=== PATIENT | female | born 1985 | race Caucasian/White ===

== ENCOUNTER 2018-04-09 13:05 | Emergency (ER) | payer OTHER ==
[~2018-04-09] VITALS: Ht 160 cm; Wt 106.9 kg
[2018-04-09 13:15] VITALS: TEMP 36.8; Ht 160 cm; Wt 106.9 kg
[2018-04-09] MEDS ORDERED: SODIUM CHLORIDE 0.9% 1000ML 1,000 ML IV STA (13:40)
[2018-04-09] MEDS ORDERED: MoRPHine SULFATE 4 MG/ML 1 ML CARP\\VIAL IV STA (13:40)
[2018-04-09] MEDS ORDERED: ONDANSETRON INJ 2 MG/ML 2 ML VIAL IV STA ×2 (13:40→15:46)
--- NOTE | 2018-04-09 14:18 | DIAGNOSTIC IMAGING REPORT ---
ABDOMEN 2VIEW W/PA CHEST RTN CLINICAL HISTORY: Generalized abdominal pain and nausea COMPARISON STUDY: No previous studies for comparison. FINDINGS: Erect chest reveals no free intraperitoneal air. There is no focal pulmonary consolidation. Erect and supine views the abdomen reveal surgical clips in the right upper quadrant consistent with a prior cholecystectomy. There are no transition zones indicate bowel obstruction. There are no abnormal dilated loops of large or small bowel. There are nonspecific pelvic basin calcifications, statistically representing phleboliths. IMPRESSION: No evidence of bowel obstruction. No evidence of free air. Electronically signed by: Shamir Nye M.D. 04/09/2018 2:17 PM Dictated Date/Time: 04/09/2018 2:16 PM
[2018-04-09 14:28] LABS: BASO % 0.3 %; BASO ABS # 0.03 K/uL (0-0.2); EOS % 0.4 %; EOS ABS # 0.04 K/uL (0-0.5); HEMATOCRIT 43.2 % (37-47); HEMOGLOBIN 15.2 g/dL (12.0-16.0); IG# 0.02 K/uL (0.00-0.02); LYMPH % 20.7 %; LYMPH ABS # 2.05 K/uL (1.2-3.4); MEAN CELL VOLUME 85.9 fL (80-100); MEAN CORPUSCULAR HEMOGLOBIN 30.2 pg (25-34); MEAN CORPUSCULAR HGB CONC 35.2 g/dl (32-36); MEAN PLATELET VOLUME 11.3 fL (7.4-10.4); MONO % 7.3 %; MONO ABS # 0.72 K/uL (0.11-0.59); NEUT % 71.1 %; NEUT ABS # 7.04 K/uL (1.4-6.5); PLATELET COUNT 204 K/uL (130-400); RED CELL DISTRIBUTION WIDTH CV 13.6 % (11.5-14.5); RED CELL DISTRIBUTION WIDTH SD 42.7 fL (36.4-46.3)
[2018-04-09 14:29] LABS: PTT PATIENT 30.7 SECONDS (21.0-31.0)
[2018-04-09 14:33] LABS: CALCIUM 8.9 mg/dl (8.5-10.1); CREATININE 0.72 mg/dl (0.60-1.20); POTASSIUM 3.3 mmol/L (3.5-5.1); TOTAL PROTEIN 7.5 gm/dl (6.4-8.2)
[2018-04-09] MEDS ORDERED: OPTIRAY 320 IV PRN (14:45)
[2018-04-09] MEDS ORDERED: SODIUM CHLORIDE 0.9% 1000ML 1,000 ML IV ONE (15:15)
[2018-04-09] MEDS ORDERED: MoRPHine SULFATE 10 MG/ML CARP/VIAL IV STA (15:41)
--- NOTE | 2018-04-09 15:51 | DIAGNOSTIC IMAGING REPORT ---
ABD/PELVIS IV CONTRAST ONLY CLINICAL HISTORY: 32 years-old Female presenting with upper abd pain with N/V; s/p cholecystectomy. TECHNIQUE: Multidetector CT of the abdomen and pelvis was performed after the administration of intravenous contrast. IV contrast: 94 mL of Optiray 320. A dose lowering technique was used consistent with the principles of ALARA (as low as reasonably achievable). COMPARISON: Plain radiograph performed earlier the same day. CT DOSE (mGy.cm): The estimated cumulative dose is 1067.06 mGycm. FINDINGS: Student Outreach Coordinator topogram: Cholecystectomy clips. Lung bases: Minimal basilar opacities, likely atelectasis. Normal heart size. No pericardial or pleural effusion. Liver: Normal morphology. Perfusional variation or fatty infiltration along the fissure for the ligamentum teres. No liver lesion. Patent hepatic vasculature. Biliary: Mild biliary ductal prominence likely a reservoir effect in the post cholecystectomy state. Gallbladder surgically absent. Pancreas: Normal. Spleen: Normal. Adrenal glands: Normal. Kidneys and ureters: Normal. No hydronephrosis. Bladder: Incompletely evaluated secondary to underdistention. Pelvic organs: Uterus and left ovary normal. Right ovary not visualized. Dominant follicle evident in the left ovary. Bowel: Prominent intramural fat deposition in the cecum and ascending colon, nonspecific and seen in the setting of chronic inflammation, obesity, or exposure to chronic steroids among other etiologies. No pericolonic inflammatory change to suggest active inflammation here no bowel obstruction. Evidence of some mucosal edema in the gastric antrum with mucosal hyperemia. No perigastric inflammatory change. The duodenum is normal. Peritoneal cavity: No free fluid or intraperitoneal gas. Lymph nodes: No enlarged lymph nodes in the abdomen or pelvis. Vasculature: Aorta and IVC patent and normal in caliber. Abdominal wall: Normal. Musculoskeletal: Normal. IMPRESSION: 1. Prominent submucosal edema in the gastric antrum with mucosal hyperemia. Findings suggest gastritis. Electronically signed by: Sadiq Hoyos M.D. 04/09/2018 3:50 PM Dictated Date/Time: 04/09/2018 3:44 PM
[2018-04-09] MEDS ORDERED: PRLSR20 PO (17:06)
[2018-04-09] MEDS ORDERED: ONDA4TAB10 SL (17:06)
[2018-04-09 21:34] VITALS: BP 105/75; PULSE 69; O2SAT 99
[2018-04-09] MEDS ORDERED: ONDANSETRON HOME PACK 4MG OD TAB PO ONE (21:45)
--- NOTE | 2018-04-09 22:08 | EMERGENCY ROOM VISIT NOTE ---
ED Visit Note First contact with patient: 13:18 Chief Complaint: Stomach pain, chest pain, nausea, vomiting and breathing. History of Present Illness: Ms. Goode is a 32 year-old white female who ambulates into the ED complaining of upper abdominal pain, chest pain, nausea, vomiting and difficulty breathing. Historically patient reports irritable bowel syndrome and is status post cholecystectomy, tubal ligation and appendectomy. Patient reports a gradual onset of bilateral upper quadrant abdominal pain that started 3 days ago. Since that time her pain has been constant and gradually increasing in intensity. She describes her pain as a cramping sensation. Her pain has waxed and waned in intensity. Currently she rates her discomfort 7/ 10. On the second day of her symptoms she reported that intermittently her pain has been radiating into the anterior chest. When the pain goes into the anterior chest she describes this discomfort as a pressure sensation and rates her discomfort 4/10; currently she is describing chest discomfort as pressure and rates it 4/10. Her abdominal pain worsens with palpation and vomiting and her chest discomfort is worsened with palpation and vomiting. She has not identified any alleviating factors related to her pain but does report a few times over the last couple of days she has had brief episodes of no chest pain or abdominal pain. She has not taken any medications for her symptoms prior to arrival at the hospital. Associated with her symptoms she reports that she has been having chills but no matilde fevers, she has been nauseated and had multiple episodes of vomiting, she is also noted some fine flecks of bright red blood in her vomitus, she has had a decreased appetite and when her pain becomes severe in her chest she feels like she is having difficulty breathing; when her chest discomfort is improved or stops she is no longer having the sensations of difficulty breathing. Patient denies sweats, skin eruptions, skin color changes, upper respiratory tract symptoms, shortness of breath, palpitations, orthopnea, dependent edema, previous clots, claudication, cramping, recent surgery/inactivity/extended travel diarrhea, constipation, rectal bleeding, black/tarry stools, urinary symptoms, hematuria, vaginal bleeding, vaginal discharge, back/flank pain. Review of Systems: As noted above in history of present illness. All body systems were reviewed and found to be negative as noted above. Past Medical History: As previously noted and anemia. Current Medications: Patient denies. Allergies to Medications: Novocain. Social History: Patient is currently employed; she feels safe in her home environment; she admits to tobacco and alcohol use. Physical Examination: Vital Signs: Date Time Temp Pulse Resp B/P (MAP) Pulse Ox O2 Delivery O2 Flow Rate FiO2 04/09/18 21:34 69 14 105/75 99 Room Air 04/09/18 20:23 60 04/09/18 19:45 60 17 95/65 97 Room Air 04/09/18 17:45 54 16 104/64 97 04/09/18 15:45 58 16 107/69 100 Room Air 04/09/18 14:28 76 04/09/18 14:26 97 Room Air 04/09/18 13:15 36.8 86 20 129/88 98 Room Air GENERAL: 32-year-old female in moderate distress due to pain, nontoxic-appearing , afebrile and hemodynamically stable. NEUROLOGICAL: Awake, alert and oriented to person, place and time. Answering questions appropriately and following commands. Normal gait. SKIN: Warm, dry and pink. No soft tissue eruptions or trauma noted. HEENT: Atraumatic and normocephalic. PERRLA. Sclera white and conjunctiva pink. Oral cavity moist and pink. Pharynx is nonerythematous or edematous. Speech normal. No lymphadenopathy. Trachea midline. No jugular venous distention. No carotid bruits. BACK: No tenderness over the bony spine. No CVA tenderness. THORAX: Lungs sounds are clear to auscultation and equal bilaterally with symmetrical chest wall. No wheezing, rales or rhonchi. Moderate tenderness with compression over the lateral ribs but no tenderness with compression or palpation over the anterior ribs. I do not appreciate any bony deformity or crepitus. There is no subcutaneous air. No increased respiratory effort or rate. HEART: Regular rate and rhythm. No gallops, rubs or murmurs are appreciated. PMI is not displaced. No lifts, heaves or thrills. ABDOMEN: Obese and soft with moderate tenderness over the bilateral upper abdomen just inferior to the lower ribs. Positive bowel sounds in all quadrants. No guarding, rigidity or organomegaly. EXTREMITIES: Moves all extremities well on command and with purpose. All distal neurovascular statuses are intact and equal bilaterally. No calf tenderness or cords. ED Course: Patient is assessed as noted above. Patient's medication list was reviewed. Laboratory Testing: Test 04/09/18 14:00 04/09/18 14:06 04/09/18 14:24 Range/Units White Blood Count 9.90 4.8-10.8 K/uL Red Blood Count 5.03 4.2-5.4 M/uL Hemoglobin 15.2 12.0-16.0 g/dL Hematocrit 43.2 37-47 % Mean Corpuscular Volume 85.9 80-100 fL Mean Corpuscular Hemoglobin 30.2 25-34 pg Mean Corpuscular Hemoglobin Concent 35.2 32-36 g/dl Platelet Count 204 130-400 K/uL Mean Platelet Volume 11.3 7.4-10.4 fL Neutrophils (%) (Auto) 71.1 % Lymphocytes (%) (Auto) 20.7 % Monocytes (%) (Auto) 7.3 % Eosinophils (%) (Auto) 0.4 % Basophils (%) (Auto) 0.3 % Neutrophils # (Auto) 7.04 1.4-6.5 K/uL Lymphocytes # (Auto) 2.05 1.2-3.4 K/uL Monocytes # (Auto) 0.72 0.11-0.59 K/uL Eosinophils # (Auto) 0.04 0-0.5 K/uL Basophils # (Auto) 0.03 0-0.2 K/uL RDW Standard Deviation 42.7 36.4-46.3 fL RDW Coefficient of Variation 13.6 11.5-14.5 % Immature Granulocyte % (Auto) 0.2 % Immature Granulocyte # (Auto) 0.02 0.00-0.02 K/uL Prothrombin Time 10.5 9.0-12.0 SECONDS Prothromb Time International Ratio 1.0 0.9-1.1 Activated Partial Thromboplast Time 30.7 21.0-31.0 SECONDS Partial Thromboplastin Ratio 1.2 Sodium Level 136 136-145 mmol/L Potassium Level 3.3 3.5-5.1 mmol/L Chloride Level 103 98-107 mmol/L Carbon Dioxide Level 26 21-32 mmol/L Anion Gap 7.0 3-11 mmol/L Blood Urea Nitrogen 6 7-18 mg/dl Creatinine 0.72 0.60-1.20 mg/dl Est Creatinine Clear Calc Drug Dose 131.4 ml/min Estimated GFR () 128.4 Estimated GFR (Non- 110.8 BUN/Creatinine Ratio 8.5 10-20 Random Glucose 99 70-99 mg/dl Calcium Level 8.9 8.5-10.1 mg/dl Total Bilirubin 0.8 0.2-1 mg/dl Direct Bilirubin 0.2 0-0.2 mg/dl Aspartate Amino Transf (AST/SGOT) 11 15-37 U/L Alanine Aminotransferase (ALT/SGPT) 18 12-78 U/L Alkaline Phosphatase 78 45-117 U/L Total Protein 7.5 6.4-8.2 gm/dl Albumin 4.0 3.4-5.0 gm/dl Lipase 52 73-393 U/L Bedside Troponin I < 0.030 0-0.045 ng/ml Urine Color ORANGE Urine Appearance CLOUDY CLEAR Urine pH 7.5 4.5-7.5 Urine Specific [place] 1.036 1.000-1.030 Urine Protein NEG NEG Urine Glucose (UA) NEG NEG Urine Ketones 3+ NEG Urine Occult Blood 3+ NEG Urine Nitrite POS NEG Urine Bilirubin NEG NEG Urine Urobilinogen NEG NEG Urine Leukocyte Esterase SMALL NEG Urine WBC (Auto) 10-30 0-5 /hpf Urine RBC (Auto) 10-30 0-4 /hpf Urine Hyaline Casts (Auto) 5-10 0-5 /lpf Urine Epithelial Cells (Auto) >30 0-5 /lpf Urine Bacteria (Auto) 2+ NEG Urine Renal Epithelial Cells 0-5 /lpf Urine Culture: Pending Acute Abdominal X-Ray Series: Was read by myself and the radiologist showing a normal PA chest with no signs of infiltrates, effusions or pneumothorax. Normal heart silhouette and bony anatomy. Abdominal component shows no free air within the abdomen and a normal bowel gas pattern with no signs of obstruction. Radiologist also notes nonspecific pelvic basin calcifications. IV Contrast Abdominal/Pelvic CT: Was reviewed by myself and read by the radiologist and showing prominent submucosal edema within the gastric atrium and mucosal hyperemia consistent with gastritis. EKG: Was read by myself and shows normal sinus rhythm with a ventricular rate of 76 bpm. Normal axis, intervals and complexes. No acute ST changes indicating ischemia, injury or infarction. No previous were found to medical records for comparison. Patient was hydrated with 2 L normal saline and she received a total of 10 mg of morphine IV and a total of 8 mg of Zofran IV for her symptoms. Patient was reassessed multiple times during her stay in the emergency department. Patient's case was reviewed with Dr. Rosales; we agreed on diagnostic approach, treatment, disposition and plan. Patient was educated about today's findings and instructed on her treatment plan ; she verbalized understanding and agreement with this plan. At discharge time it was found that the patient had driven herself to the hospital. She lives over 1 hour away from the hospital. She was not able to find a ride so she was held until 6 hours after her last dose of narcotics which was approximately 10 PM. She was reassessed at that time and reported that she was feeling much better but was still slightly nauseated. Clinical Impression: Acute gastritis. Decision-Making: Initially my differential diagnosis I considered exacerbation of irritable bowel syndrome, bowel obstruction, perforated viscus, acute coronary syndrome, pneumonia, pulmonary embolism, pancreatitis, hepatitis and other causes. Disposition: Patient discharged home in stable condition; as previously noted she was nauseated on discharge were reported she was feeling much better. Plan: Patient was encouraged you 650 mg of acetaminophen every 6 hours for pain. Patient was encouraged use 4 mg of Zofran every 6 hours as needed for nausea/ vomiting. Patient was encouraged to use 20 mg of omeprazole once a day. Patient was encouraged use a bland diet for 48 hours and stay well-hydrated. Patient was encouraged to avoid gastric irritants. Patient was encouraged to contact her PCP for recheck and possible referral to gastroenterology for possible EGD. Patient was encouraged return the ED for worsening pain, bloody vomitus, fevers , bloody stools, uncontrolled vomiting or any new/concerning symptoms. Patient was encouraged to follow-up with personal physician for recheck in 1-2 days. Patient was encouraged return the ED for worsening symptoms, fevers, or any new/ concerning symptoms.
== END 2018-04-09 21:50 | disposition home or self-care (01) ==
LOC: C.EDB 13:07 → C.EDC 21:50
DX: K29.00 Acute gastritis without bleeding (principal); K58.9 Irritable bowel syndrome, unspecified; F17.200 Nicotine dependence, unspecified, uncomplicated; Z90.49 Acquired absence of other specified parts of digestive tract; Z90.89 Acquired absence of other organs; Z98.51 Tubal ligation status; Z88.4 Allergy status to anesthetic agent

== ENCOUNTER 2021-02-16 08:22 | Observation (INO) ==
[2021-02-16 09:57] LABS: Basophils # (auto) 0.04 K/uL (0-0.2); Basophils % (auto) 0.3 %; Eosinophils % (auto) 0.8 %; Hemoglobin 15.6 g/dL (12.0-16.0); Immature Granulocytes # (auto) 0.03 K/uL (0.00-0.02); Immature Granulocytes % (auto) 0.2 %; Lymphocytes % (auto) 13.9 %; Mean Corpuscular Hemoglobin 30.6 pg (25-34); Mean Corpuscular Hgb Conc 34.7 g/dL (32-36); Mean Corpuscular Volume 88.2 fL (80-100); Mean Platelet Volume 11.9 fL (7.4-10.4); Monocytes # (auto) 0.37 K/uL (0.11-0.59); Neutrophils # (auto) 9.98 K/uL (1.4-6.5); Neutrophils % (auto) 81.8 %; Platelet Count 247 K/uL (130-400); RDW Coefficient of Variation 13.6 % (11.5-14.5); RDW Standard Deviation 44.5 fL (36.4-46.3); White Blood Count 12.22 K/uL (4.8-10.8)
[2021-02-16 10:21] LABS: Albumin Level 4.1 gm/dl (3.4-5.0); BUN Creatinine Ratio 13.8 (10-20); Bilirubin,Total 0.4 mg/dl (0.2-1); Calcium 9.1 mg/dl (8.5-10.1); Creatinine Clr Calc Pharmacy 113.5 ml/min; Est GFR (African American) 121.7; Potassium 3.9 mmol/L (3.5-5.1)
[2021-02-16 10:22] LABS: Albumin Globulin Ratio 1.1 (0.9-2); Globulin 3.8 gm/dl (2.5-4.0); Total Protein 7.9 gm/dl (6.4-8.2)
[2021-02-16] MEDS ORDERED: PROCHLORPERAZINE 2 ML IV ONE (10:44)
[2021-02-16] MEDS ORDERED: SODIUM CHLORIDE 0.9% 1000ML 1,000 ML IV ONE (10:44)
--- NOTE | 2021-02-16 10:44 | Emergency Department Note ---
Impression & Plan Seizure ED Provider Note CHIEF COMPLAINT: Seizure, headache/migraine HISTORY OF PRESENTING ILLNESS: This is a 35-year-old female who presents to the emergency department by private vehicle with complaint of migraine headache and reporting a seizure that occurred last night. Patient states that her boyfriend told her this morning that she had a seizure last night while she was sleeping. She reports that it lasted about a minute. She reportedly did not have any injuries, she did not bite her tongue, vomit, or have urinary incontinence. She states she woke up this morning feeling nauseated and having a headache which felt similar to her usual migraines. She did not try any medications for her migraines. She states the headache is frontal, throbbing, and 7/10. She has had associated nausea and vomiting as well as photophobia. She denies any numbness/tingling or weakness of the extremities, problems with balance or walking, memory or confusion. She denies any fevers or chills and denies any neck pain or stiffness. 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 The patient states that she stopped using meth after that seizure and has not used it since. She is still using marijuana regularly, which she states she gets from a friend who has a medical card. She denies alcohol use and denies any other recreational drug use. She denies any recent illnesses and denies any head trauma. REVIEW OF SYSTEMS: A complete 10 point review of systems was reviewed with the patient with pertinent positives and negatives as per history of present illness. All else were negative. PAST MEDICAL HISTORY: Migraines SOCIAL HISTORY: Lives at home, she is a current everyday smoker, denies alcohol, admits to marijuana use ALLERGIES: Reviewed in chart and with the patient PHYSICAL EXAM: CONSTITUTIONAL: Pleasant and cooperative. Nontoxic-appearing and in no acute distress. Mildly dehydrated, but otherwise well appearing and well nourished. HEENT: Normocephalic, atraumatic. PERRL, EOMI with no nystagmus. TMs normal. Pharynx normal. Tacky mucous membranes. Overall poor oral hygiene. No abrasions or lacerations noted inside the mouth or to the tongue. NECK: Supple, full active range of motion without discomfort. No midline tenderness to palpation of the cervical spine. No nuchal rigidity or meningismus. RESPIRATORY: Clear to auscultation bilaterally with no wheezing, crackles, rhonchi or stridor. Equal expansion bilaterally. CARDIOVASCULAR: Regular rate and rhythm with no murmurs, rubs or gallops. Normal peripheral perfusion. No edema. GASTROINTESTINAL: Soft, nontender, nondistended. No palpable masses or HSM. Bowel sounds present in all quadrants. No CVA tenderness bilaterally. MUSCULOSKELETAL: Full range of motion of all joints without discomfort. INTEGUMENTARY: No rash or other significant dermatologic conditions noted. NEUROLOGIC: Alert and oriented X 4 with normal affect. GCS 15. Cranial nerves II-XII grossly intact, no facial droop. No pronator drift. No focal neurologic deficits noted. 5/5 strength in all 4 extremities, sensation intact to light touch in all 4 extremities. Normal speech. [id number] testing normal. ED COURSE AND MEDICAL DECISION MAKING: CC: Patient presenting with complaint of migraine headache, possible seizure DIFFERENTIAL DIAGNOSIS: Includes, but not limited to seizure, migraine headache, tension headache, sinusitis, acute intracranial bleed, meningitis, mass or mass effect, dehydration, drug abuse, among others. INTERPRETATION OF LABS: Mild leukocytosis, no anemia, normal platelets, no significant electrolyte abnormalities, normal renal function, normal liver enzymes. UA pending. Urine drug screen positive for marijuana only. IMAGING: CT head/brain wo con CLINICAL HISTORY: Headache, seizure. COMPARISON STUDY: 09/16/2020 TECHNIQUE: Axial CT of the brain is performed from the vertex to the skull base. IV contrast was not administered for this examination. A dose lowering technique was utilized adhering to the principles of ALARA. CT DOSE: 638.56 mGycm FINDINGS: No intra or extra-axial mass lesions are visualized. There is no CT evidence of acute cortical infarction. There is no evidence of midline shift. There is no acute hemorrhage. No calvarial fractures are visualized. There is disconjugate ocular gaze There is no evidence of pathologic ventricular dilatation. There is no evidence of acute sinusitis IMPRESSION: 1. No acute intracranial findings 2. Disconjugate ocular gaze EKG INTERPRETATION: Shows normal sinus rhythm with a rate of 94 bpm, normal intervals, no ST elevation or depression, no ectopy, no significant change when compared to previous EKG from 09/16/2020 by my interpretation. MEDICATION RECONCILIATION: I attest that I have personally reviewed the patient's current medication list. INITIAL VITAL SIGNS REVIEW: I reviewed the patient's initial vital signs and interpret them as follows: T: Afebrile; BP: Normotensive; HR: Mildly tachycardic; RR: Within normal limits; Pulse Ox: Within normal limits on room air. MDM SUMMARY: Patient was evaluated at bedside, history and physical exam performed. Patient is alert and oriented, in no acute distress, resting calmly in stretcher. Seizure precautions were initiated and labs were already sent by nursing. Patient is neurologically intact with no focal deficits. Cardiac monitoring: An order was placed for continuous cardiac monitoring. The monitor shows a rate of 92 bpm with normal sinus rhythm. The patient is afebrile and nontoxic-appearing, she does not have any nuchal rigidity or meningismus on exam. I doubt meningitis. The patient states that this feels similar to previous migraines, and she did not try any medication for her symptoms. Orders were placed for labs, UA and urine , UDS, IV fluid bolus for hydration, IV Compazine for headache, CT head to evaluate for headache. Patient discussed with Dr. Hooks, who agrees with my assessment, plan, and disposition. Labs and imaging reviewed as above, labs notable for mild leukocytosis, no other significant abnormalities. She is not . Urine drug screen is positive for marijuana, otherwise negative. Urinalysis is pending. CT imaging of the head did not show any acute intracranial findings. Nursing staff called me to the bedside stating the patient was noted to be having a seizure. I did evaluate the patient, she does appear to be having a generalized seizure. There was urinary incontinence. Her airway remained patent and she did not drop her sats. The patient was given 1 mg IV Ativan. Given the development of a witnessed seizure while in the emergency department, I felt the patient would benefit from hospitalization for further work-up. I spoke on the phone with Dr. Reveles, neurology, who recommended holding off on giving any antiepileptic medications at this time unless she would have another seizure. She was happy to consult on the patient. I spoke on the phone with Dr. Alexander, [facility] Hospitalist, who agreed to evaluate the patient for admission. Patient reassessed multiple times throughout ED stay, she has remained hemodynamically stable and afebrile, and has been sleeping since receiving the Ativan. There has not been any further seizure activity. The patient was stable at time of admission. CRITICAL CARE NOTE: I have personally spent greater than 32 minutes of critical care time in the direct management of this patient. This includes bedside care, interpretation of diagnostic studies, and testing, discussion with consultants, patient, and family members, and other required patient management activities. This 32 minutes is in excess of all separately billable procedures. The chart was completed utilizing [employer] Speech voice recognition software. Grammatical errors, random word insertions, pronoun errors, and incomplete sentences are an occasional consequence of this system due to software limitations, ambient noise, and hardware issues. Any formal questions or concerns about the content, text, or information contained within the body of this dictation should be directly addressed to the nurse practitioner for clarification. Past Med/Surg History Medical History Illicit drug use Seizure Social History Smoking Status: Unknown if ever smoked Tobacco Type: Cigarettes Preferred Language: Hebrew Communication Ability Comment: patient unable to participate in admission assessment. Lethargic Current Living Situation Comment: patient unable to participate in admission assessment. Feels Safe at Home: Yes Allergies Allergies Allergy/AdvReac Type Severity Reaction Status Date / Time procaine Allergy Intermediate RASH, Verified 02/16/21 10:24 NAUSEA Home Meds Home Medications Medication Instructions Recorded Confirmed No Known Home Medications 02/16/21 02/16/21 Results & Data (ED) Vital Signs Vital Signs - 24 hr 02/16/21 08:33 02/16/21 10:20 02/16/21 12:15 Temperature 36.7 C Temperature Source Temporal Artery Scan Pulse Rate 101 H Pulse Rate [Apical] 76 114 H Pulse Rhythm [Apical] Regular Regular Pulse Strength [Apical] Normal Normal Respiratory Rate 20 16 22 Respiratory Effort / Characteristics Non-Labored Spontaneous Non-Labored Spontaneous Respiratory Depth Normal Normal Respiratory Pattern Regular Regular Blood Pressure 116/75 Blood Pressure [Left Arm] 152/101 H 123/65 Blood Pressure Mean 88 Blood Pressure Mean [Left Arm] 118 84 Blood Pressure Position [Left Arm] Sitting Lying Pulse Oximetry 99 98 98 Oxygen Delivery Method Room Air Room Air Room Air Oxygen Flow Rate 4 Sepsis Recent Fever Within 48 Hours No Sepsis New/Unexplained Change in Mental Status No Sepsis Action Taken by Nursing No Action Required 02/16/21 13:30 Temperature Temperature Source Pulse Rate Pulse Rate [Apical] 98 H Pulse Rhythm [Apical] Pulse Strength [Apical] Respiratory Rate 16 Respiratory Effort / Characteristics Respiratory Depth Respiratory Pattern Blood Pressure Blood Pressure [Left Arm] 109/68 Blood Pressure Mean Blood Pressure Mean [Left Arm] 81 Blood Pressure Position [Left Arm] Pulse Oximetry 100 Oxygen Delivery Method Oxygen Flow Rate Sepsis Recent Fever Within 48 Hours Sepsis New/Unexplained Change in Mental Status Sepsis Action Taken by Nursing Laboratory Data Result diagrams: 02/16/21 09:40 02/16/21 09:40 Lab Results 02/16/21 02/16/21 02/16/21 Range/Units 09:40 09:40 10:22 WBC 12.22 H (4.8-10.8) K/uL RBC 5.10 (4.2-5.4) M/uL Hgb 15.6 (12.0-16.0) g/dL Hct 45.0 (37-47) % MCV 88.2 (80-100) fL MCH 30.6 (25-34) pg MCHC 34.7 (32-36) g/dL RDW Std Deviation 44.5 (36.4-46.3) fL RDW Coeff of Marcelo 13.6 (11.5-14.5) % Plt Count 247 (130-400) K/uL MPV 11.9 H (7.4-10.4) fL Immature Gran % (Auto) 0.2 % Neut % (Auto) 81.8 % Lymph % (Auto) 13.9 % [place] % (Auto) 3.0 % Eos % (Auto) 0.8 % Baso % (Auto) 0.3 % Neut # (Auto) 9.98 H (1.4-6.5) K/uL Lymph # (Auto) 1.70 (1.2-3.4) K/uL [place] # (Auto) 0.37 (0.11-0.59) K/uL Eos # (Auto) 0.10 (0-0.5) K/uL Baso # (Auto) 0.04 (0-0.2) K/uL Immature Gran # (Auto) 0.03 H (0.00-0.02) K/uL Sodium 137 (136-145) mmol/L Potassium 3.9 (3.5-5.1) mmol/L Chloride 109 H (98-107) mmol/L Carbon Dioxide 26 (21-32) mmol/L Anion Gap 2.0 L (3-11) BUN 10 (7-18) mg/dl Creatinine 0.74 (0.6-1.2) mg/dl Est Cr Clr Drug Dosing 113.5 ml/min Est GFR ( Amer) 121.7 Est GFR (Non-Af Amer) 105.0 BUN/Creatinine Ratio 13.8 (10-20) Glucose 114 H (70-99) mg/dl Calcium 9.1 (8.5-10.1) mg/dl Total Bilirubin 0.4 (0.2-1) mg/dl AST 9 L (15-37) U/L ALT 18 (12-78) U/L Alkaline Phosphatase 82 (45-117) U/L Total Protein 7.9 (6.4-8.2) gm/dl Albumin 4.1 (3.4-5.0) gm/dl Globulin 3.8 (2.5-4.0) gm/dl Albumin/Globulin Ratio 1.1 (0.9-2) Urine Color Dark Yellow Urine Appearance Turbid A (Clear) Urine pH 6.5 (4.5-7.5) Ur Specific [place] 1.030 (1.000-1.030) Urine Protein Trace H (Negative) Urine Glucose (UA) Negative (Negative) Urine Ketones Trace H (Negative) Urine Blood Negative (Negative) Urine Nitrite Positive A (Negative) Urine Bilirubin 1+ H (Negative) Urine Urobilinogen Negative (Negative) Ur Leukocyte Esterase 1+ H (Negative) Urine WBC (Auto) 0 (0-5) /hpf Urine RBC (Auto) 0-4 (0-4) /hpf U Hyaline Cast (Auto) 0 (0-5) /lpf U Epithel Cells (Auto) 5-10 H (0-5) /lpf Urine Bacteria (Auto) 2+ H (Negative) Urine Crystals Not Reportable POC Ur Test (NEG) Urine Opiates Screen (Neg) Ur Methadone, Qual (Neg) Urine Barbiturates (Neg) Ur Phencyclidine (PCP) (Neg) U Amphetamin/Meth Scrn (Neg) MDMA (Ecstasy) Screen (Neg) U Benzodiazepines Scrn (Neg) Ur Cocaine Metabolite (Neg) U Marijuana (THC) Screen (Neg) COVID-19 Eval Order SARS-CoV-2 (PCR) (Negative) Influenza Type A (PCR) (Neg) Influenza Type B (PCR) (Neg) RSV (RT-PCR) (Neg) 02/16/21 02/16/21 02/16/21 Range/Units 10:22 10:37 12:13 WBC (4.8-10.8) K/uL RBC (4.2-5.4) M/uL Hgb (12.0-16.0) g/dL Hct (37-47) % MCV (80-100) fL MCH (25-34) pg MCHC (32-36) g/dL RDW Std Deviation (36.4-46.3) fL RDW Coeff of Marcelo (11.5-14.5) % Plt Count (130-400) K/uL MPV (7.4-10.4) fL Immature Gran % (Auto) % Neut % (Auto) % Lymph % (Auto) % [place] % (Auto) % Eos % (Auto) % Baso % (Auto) % Neut # (Auto) (1.4-6.5) K/uL Lymph # (Auto) (1.2-3.4) K/uL [place] # (Auto) (0.11-0.59) K/uL Eos # (Auto) (0-0.5) K/uL Baso # (Auto) (0-0.2) K/uL Immature Gran # (Auto) (0.00-0.02) K/uL Sodium (136-145) mmol/L Potassium (3.5-5.1) mmol/L Chloride (98-107) mmol/L Carbon Dioxide (21-32) mmol/L Anion Gap (3-11) BUN (7-18) mg/dl Creatinine (0.6-1.2) mg/dl Est Cr Clr Drug Dosing ml/min Est GFR ( Amer) Est GFR (Non-Af Amer) BUN/Creatinine Ratio (10-20) Glucose (70-99) mg/dl Calcium (8.5-10.1) mg/dl Total Bilirubin (0.2-1) mg/dl AST (15-37) U/L ALT (12-78) U/L Alkaline Phosphatase (45-117) U/L Total Protein (6.4-8.2) gm/dl Albumin (3.4-5.0) gm/dl Globulin (2.5-4.0) gm/dl Albumin/Globulin Ratio (0.9-2) Urine Color Urine Appearance (Clear) Urine pH (4.5-7.5) Ur Specific [place] (1.000-1.030) Urine Protein (Negative) Urine Glucose (UA) (Negative) Urine Ketones (Negative) Urine Blood (Negative) Urine Nitrite (Negative) Urine Bilirubin (Negative) Urine Urobilinogen (Negative) Ur Leukocyte Esterase (Negative) Urine WBC (Auto) (0-5) /hpf Urine RBC (Auto) (0-4) /hpf U Hyaline Cast (Auto) (0-5) /lpf U Epithel Cells (Auto) (0-5) /lpf Urine Bacteria (Auto) (Negative) Urine Crystals POC Ur Test NEG (NEG) Urine Opiates Screen Neg (Neg) Ur Methadone, Qual Neg (Neg) Urine Barbiturates Neg (Neg) Ur Phencyclidine (PCP) Neg (Neg) U Amphetamin/Meth Scrn Neg (Neg) MDMA (Ecstasy) Screen Neg (Neg) U Benzodiazepines Scrn Neg (Neg) Ur Cocaine Metabolite Neg (Neg) U Marijuana (THC) Screen Pos H (Neg) COVID-19 Eval Order [facility] at [facility] SARS-CoV-2 (PCR) (Negative) Influenza Type A (PCR) (Neg) Influenza Type B (PCR) (Neg) RSV (RT-PCR) (Neg) 02/16/21 Range/Units 12:13 WBC (4.8-10.8) K/uL RBC (4.2-5.4) M/uL Hgb (12.0-16.0) g/dL Hct (37-47) % MCV (80-100) fL MCH (25-34) pg MCHC (32-36) g/dL RDW Std Deviation (36.4-46.3) fL RDW Coeff of Marcelo (11.5-14.5) % Plt Count (130-400) K/uL MPV (7.4-10.4) fL Immature Gran % (Auto) % Neut % (Auto) % Lymph % (Auto) % [place] % (Auto) % Eos % (Auto) % Baso % (Auto) % Neut # (Auto) (1.4-6.5) K/uL Lymph # (Auto) (1.2-3.4) K/uL [place] # (Auto) (0.11-0.59) K/uL Eos # (Auto) (0-0.5) K/uL Baso # (Auto) (0-0.2) K/uL Immature Gran # (Auto) (0.00-0.02) K/uL Sodium (136-145) mmol/L Potassium (3.5-5.1) mmol/L Chloride (98-107) mmol/L Carbon Dioxide (21-32) mmol/L Anion Gap (3-11) BUN (7-18) mg/dl Creatinine (0.6-1.2) mg/dl Est Cr Clr Drug Dosing ml/min Est GFR ( Amer) Est GFR (Non-Af Amer) BUN/Creatinine Ratio (10-20) Glucose (70-99) mg/dl Calcium (8.5-10.1) mg/dl Total Bilirubin (0.2-1) mg/dl AST (15-37) U/L ALT (12-78) U/L Alkaline Phosphatase (45-117) U/L Total Protein (6.4-8.2) gm/dl Albumin (3.4-5.0) gm/dl Globulin (2.5-4.0) gm/dl Albumin/Globulin Ratio (0.9-2) Urine Color Urine Appearance (Clear) Urine pH (4.5-7.5) Ur Specific [place] (1.000-1.030) Urine Protein (Negative) Urine Glucose (UA) (Negative) Urine Ketones (Negative) Urine Blood (Negative) Urine Nitrite (Negative) Urine Bilirubin (Negative) Urine Urobilinogen (Negative) Ur Leukocyte Esterase (Negative) Urine WBC (Auto) (0-5) /hpf Urine RBC (Auto) (0-4) /hpf U Hyaline Cast (Auto) (0-5) /lpf U Epithel Cells (Auto) (0-5) /lpf Urine Bacteria (Auto) (Negative) Urine Crystals POC Ur Test (NEG) Urine Opiates Screen (Neg) Ur Methadone, Qual (Neg) Urine Barbiturates (Neg) Ur Phencyclidine (PCP) (Neg) U Amphetamin/Meth Scrn (Neg) MDMA (Ecstasy) Screen (Neg) U Benzodiazepines Scrn (Neg) Ur Cocaine Metabolite (Neg) U Marijuana (THC) Screen (Neg) COVID-19 Eval Order SARS-CoV-2 (PCR) NEGATIVE (Negative) Influenza Type A (PCR) Negative (Neg) Influenza Type B (PCR) Negative (Neg) RSV (RT-PCR) Negative (Neg) Administered Medications Discontinued Medications Sodium Chloride (Nss 1000ml) 1,000 mls @ 999 mls/hr IV .[id number] ONE Stop: 02/16/21 11:44 Last Infusion: 02/16/21 11:58 Dose: 0 mls/hr Documented by: [id number] Admin: 02/16/21 10:58 Dose: 999 mls/hr Documented by: [id number] Prochlorperazine (Compazine) 2 mls @ 1 mls/min IV ONE ONE Stop: 02/16/21 10:45 Last Admin: 02/16/21 10:58 Dose: 1 mls/min Documented by: [id number] Lorazepam (Ativan) 1 mg in 2 mls @ 2 mls/min IV NOW STA Stop: 02/16/21 11:55 Last Admin: 02/16/21 11:57 Dose: 2 mls/min Documented by: [id number] Lorazepam (Lorazepam 2 Mg/4 Ml Vial) Confirm Administered Dose 2 mg .ROUTE .STK- MED ONE Stop: 02/16/21 11:54 Last Admin: 02/16/21 11:57 Dose: Not Given Documented by: [id number] Ondansetron HCl (Ondansetron Inj 2 Mg/Ml 2 Ml Vial) Confirm Administered Dose 4 mg .ROUTE .STK-MED ONE Stop: 02/16/21 12:46 Last Admin: 02/16/21 12:57 Dose: 4 mg Documented by: [id number] Discharge Plan Visit Data Chief Complaint: Seizure Stated Complaint: SEIZURE ED Provider: Cain Hooks ED Midlevel Provider: Martha Humphrey Discharge Problem: Seizure Patient Disposition: Admitted As Inpatient Discharge Instructions Interventions: ED Discharge Assessment Last Done: 02/16/21 15:03
--- NOTE | 2021-02-16 11:38 | CT Scan Report ---
CT head/brain wo con CLINICAL HISTORY: Headache, seizure. COMPARISON STUDY: 09/16/2020 TECHNIQUE: Axial CT of the brain is performed from the vertex to the skull base. IV contrast was not administered for this examination. A dose lowering technique was utilized adhering to the principles of ALARA. CT DOSE: 638.56 mGycm FINDINGS: No intra or extra-axial mass lesions are visualized. There is no CT evidence of acute cortical infarc tion. There is no evidence of midline shift. There is no acute hemorrhage. No calvarial fractures ar e visualized. There is disconjugate ocular gaze There is no evidence of pathologic ventricular dilatation. There is no evidence of acute sinusitis IMPRESSION: 1. No acute intracranial findings 2. Disconjugate ocular gaze ACT 112: Negative or not required by law. Electronically signed by: Shamir Nye M.D. 02/16/2021 11:36 AM
[2021-02-16] MEDS ORDERED: LORazepam 2 MG/4 ML VIAL ONE (11:53)
[2021-02-16] MEDS ORDERED: LORazepam 1 MG/2 ML VIAL IV STA (11:54)
--- NOTE | 2021-02-16 12:37 | History & Physical Report ---
Date of Service February 16, 2021 Assessment & Plan (1) Seizure: Unknown etiology at this time, while awaiting toxicology screen- - Neurology consult- Appreciate recs on anti-epileptics and further imaging (MRI seizure protocol) - Admit for observation with seizure precautions - Responded to 1 mg of Ativan in the EMD for seizure; if that does not respond 4mg IV q5-10 min - If status occurs, Ativan as above, Duyen suarez, call neurology I reviewed the Head CT images personally and ECG personally. (2) Illicit drug use: Continue to educate patient on avoidance - If patient wishes to stop consider case resource manager consult for cessation (3) Obesity: Weight loss education and healthy lifestyle choices- needs a PCP appreciate case resource manager assistance (4) Leukocytosis: WBC 12- likely reactive to stress - Urine contaminant- 0 WBC per HPF 5-10 epi cells. History of Present Illness Primary Care Provider: NO PCP 35 YOF with past medical history of methamphetamine and marijuana use. Patient has one other reported seizure in August with positive meth and marijuana, she was discharged to home with neurology appointment and follow up; however patient did not go to her appointment. Patient comes to the emergency room because her boyfriend stated she had a seizure while sleeping last night, and reportedly these have been ongoing since August, but patient has not re-presented. Patient has video on her phone per the nurse of her seizures for review. In the emergency room, she had a witnessed tonic clonic seizure, with locked gaze and loss of bladder function; followed by post ictal confusion. She received 1mg Ativan. Telemetry was reviewed for correlation at that time and there are erratic waves for that time. Electrolytes are intact and does not appear to be infectious at this time, however urine toxicology and culture are pending. Dr. Reveles from Neurology was consulted via the EMD and will be in to evaluate the patient, does not recommend any anti-epileptics at this time, especially if related to illicit drug use. Upon my evaluation the patient is hemodynamically stable, continues to be posit-ictal with confusion and lethargy but follows commands. Patient will be admitted for observation. HCG negative. Allergies Allergy/AdvReac Type Severity Reaction Status Date / Time procaine Allergy Intermediate RASH, Verified 02/16/21 10:24 NAUSEA Home Medications Medication Instructions Recorded Confirmed Type No Known Home Medications 02/16/21 02/16/21 History Past Med/Surg History Medical History Illicit drug use Seizure Social History Smoking Status: Unknown if ever smoked Tobacco Type: Cigarettes Preferred Language: Welsh Communication Ability Comment: patient unable to participate in admission assessment. Lethargic Current Living Situation Comment: patient unable to participate in admission assessment. Feels Safe at Home: Yes Review of Systems Review of Systems: REVIEW OF SYSTEMS: Constitutional: No fever, sweats or chills Eyes: No diplopia, no worsening or blurred vision ENT: normal hearing, no trouble swallowing Respiratory: No cough, sputum, dyspnea at rest or on exertion Cardiovascular: No chest pain, tightness or palpitations Abdomen: No pain, nausea, vomiting, diarrhea or constipation Musculoskeletal: No joint pain, calf pain, swelling Neurologic: No weakness, numbness/tingling, or balance problems Psychiatric: No anxiety or depression Skin: No rash or itch Physical Exam Physical Exam: PHYSICAL EXAM: General: sleepy, arousable to stimulus, no apparent distress Head: Normocephalic, atraumatic ENT: PERRLA, EOMI, no pharyngeal exudate, mucous membranes moist Neuro: AAO x 3, speech clear and appropriate but drowsy, strength intact bilaterally 5/5, sensation intact and equal all extremities and dermatomes, no pronator drift, no meningeal signs. Chest: equal rise and fall of the chest, no accessory muscle use, no heaves or thrills, Clear to auscultation, on room air, Cardiac: Regular rate and rhythm, telemetry reviewed, skin warm dry, cap refill <3 seconds, peripheral pulses +2 no JVD, no murmur, no edema GI: NABS x 4 quadrants, soft, nontender to palpation, no rebound, guarding or tenderness : Spontaneously voiding, no pain, no CVA tenderness, Extremities: Normal inspection, no peripheral edema or erythema, calfs nontender to palpation Psych: Normal mood and affect Skin: no rash or erythema Results & Data Results & Data ([facility]) Vital Signs (Past 12 Hours) Vital Signs Temp Pulse Pulse Resp BP BP Pulse Ox 02/16/21 12:15 114 H 22 123/65 98 02/16/21 10:20 76 16 152/101 H 98 02/16/21 08:33 36.7 C 101 H 20 116/75 99 Laboratory Results Abnormal lab results 02/16/21 02/16/21 Range/Units 09:40 09:40 WBC 12.22 H (4.8-10.8) K/uL MPV 11.9 H (7.4-10.4) fL Neut # (Auto) 9.98 H (1.4-6.5) K/uL Immature Gran # (Auto) 0.03 H (0.00-0.02) K/uL Chloride 109 H (98-107) mmol/L Anion Gap 2.0 L (3-11) Glucose 114 H (70-99) mg/dl AST 9 L (15-37) U/L Diagnostic Findings CT head/brain wo con CLINICAL HISTORY: Headache, seizure. COMPARISON STUDY: 09/16/2020 TECHNIQUE: Axial CT of the brain is performed from the vertex to the skull base. IV contrast was not administered for this examination. A dose lowering technique was utilized adhering to the principles of ALARA. CT DOSE: 638.56 mGycm FINDINGS: No intra or extra-axial mass lesions are visualized. There is no CT evidence of acute cortical infarction. There is no evidence of midline shift. There is no acute hemorrhage. No calvarial fractures are visualized. There is disconjugate ocular gaze There is no evidence of pathologic ventricular dilatation. There is no evidence of acute sinusitis IMPRESSION: 1. No acute intracranial findings 2. Disconjugate ocular gaze Medications Administered Discontinued Medications Sodium Chloride (Nss 1000ml) 1,000 mls @ 999 mls/hr IV .Q1H1M ONE Stop: 02/16/21 11:44 Last Infusion: 02/16/21 11:58 Dose: 0 mls/hr Documented by: [id number] Admin: 02/16/21 10:58 Dose: 999 mls/hr Documented by: [id number] Prochlorperazine (Compazine) 2 mls @ 1 mls/min IV ONE ONE Stop: 02/16/21 10:45 Last Admin: 02/16/21 10:58 Dose: 1 mls/min Documented by: [id number] Lorazepam (Ativan) 1 mg in 2 mls @ 2 mls/min IV NOW STA Stop: 02/16/21 11:55 Last Admin: 02/16/21 11:57 Dose: 2 mls/min Documented by: [id number] Lorazepam (Lorazepam 2 Mg/4 Ml Vial) Confirm Administered Dose 2 mg .ROUTE .STK- MED ONE Stop: 02/16/21 11:54 Last Admin: 02/16/21 11:57 Dose: Not Given Documented by: [id number] ECG Additional Comments: Normal sinus rhythm with sinus arrhythmia Normal ECG Code Status & VTE Plan Code Status CODE: FULL VTE: SCD's, lovenox 40 sub q VTE Prophylaxis Plan VTE Prophylaxis will be ordered: Yes Supervising Physician Co-Signing Physician Notes Patient was seen and examined independently I discussed the case with Gabriel DSOUZA I reviewed pertinent past medical social family history and also the plan of care and agree with the plan of care. Patient had a recorded seizure by her boyfriend on his phone had a witnessed seizure in the emergency department. She is a history of having seizures in the past associate with illicit drug use but her talk screen is only positive for marijuana at this time her imaging of her brain has been negative for structural changes subsequently we are evaluating her further with MRI scan pending a neurological follow-up I did visit the patient she was postictal but she was able to respond to questions she does seem tired Any exceptions will be noted below PG Care Time/CCT Total # of Minutes Spent Total Time Spent with Patient: Total time spent is greater than 50% in coordination of care (as documented) at patient's floor/unit and/or counseling patient: Coding Level of Care Code 48726 OBS Care - Level 3 Diagnoses Seizure R56.9 Illicit drug use F19.90 Obesity E66.9; Z68.38 Body mass index: BMI 38.0-38.9 Obesity classification: adult class 2 (BMI 35 - 39.9) Obesity type: unspecified obesity type Serious obesity comorbidity presence: without serious comorbidity Leukocytosis D72.829 (1) Obesity Body mass index: BMI 38.0-38.9 Obesity classification: adult class 2 (BMI 35 - 39.9) Obesity type: unspecified obesity type Serious obesity comorbidity presence: without serious comorbidity Qualified Code(s): E66.9 - Obesity, unspecified; Z68.38 - Body mass index [BMI] 38.0-38.9, adult
[2021-02-16] MEDS ORDERED: ONDANSETRON INJ 2 MG/ML 2 ML VIAL ONE (12:45)
[2021-02-16 13:02] LABS: Influenza A virus by PCR Negative (Neg); Influenza B virus by PCR Negative (Neg); RSV by PCR Negative (Neg); SARS CoV2 RNA(COVID-19) InHosp NEGATIVE (Negative)
[2021-02-16 13:03] LABS: Appearance Urine Turbid (Clear); Bacteria Urine Automated 2+ (Negative); Blood Urine Negative (Negative); Color Urine Dark Yellow; Glucose Urine UA Negative (Negative); Ketones Urine Trace (Negative); Leukocyte Esterase Urine 1+ (Negative); Nitrite Urine Positive (Negative); Protein Urine Trace (Negative); Urobilinogen Urine Negative (Negative); pH Urine 6.5 (4.5-7.5)
[2021-02-16 13:10] LABS: Bilirubin Urine 1+ (Negative)
[2021-02-16 13:34] LABS: Amphetamines+Metham, Urine Neg (Neg); Barbiturates, Urine Neg (Neg); Benzodiazepine, Urine Neg (Neg); Cocaine, Urine Neg (Neg); MDMA (Ecstacy), Urine Neg (Neg); Methadone, Urine Neg (Neg); Opiate, Urine Neg (Neg); Phencyclidine, Urine Neg (Neg)
[2021-02-16 13:35] LABS: Cast Urine Automated 0 /lpf (0-5); RBC Urine Automated 0-4 /hpf (0-4); WBC Urine Automated 0 /hpf (0-5)
--- NOTE | 2021-02-16 15:27 | Neurology Consultation ---
Date of Consultation February 16, 2021 Assessment & Plan (1) Seizure: Dacia Goode is a 35 yo woman w/ PMH of migraines, obesity and polysubstance abuse (meth/marijuana) who p/t [facility] after having a witnessed seizure on 02/15. # Seizure: c/f provoked seizures in the setting of marijuana usage (unclear if natural vs synthetic such as K2 which has been related to seizures), less likely underlying seizure disorder triggered by UTI. - MRI brain w/ and w/o with seizure protocol - routine EEG (will need to be ordered stat to have picking tech come in over the weekend) - treatment of UTI per primary team - would hold off on starting AED at this time as unclear if seizures are provoked from drug abuse. If another witnessed seizure occurs (with eyes open), would give 1mg ativan and load with keppra 1500mg. Would then start keppra 1g bid. Thank you for this interesting consult. Plan of care discussed with primary team. Please call or text with questions. 60 minutes was spent [id number] with patient, with more than 50% spent on counseling/coordination of care /charting. (2) Illicit drug use: History of Present Illness History of Present Illness Dacia Goode is a 35 yo woman w/ PMH of migraines, obesity and polysubstance abuse (meth/marijuana) who p/t [facility] after having a witnessed seizure on 02/15. In the ED, she is afebrile, BP 105/71, heart rate 90, respiratory rate 18, s atting 100s on room air. Labs notable for WBC 12.2, hemoglobin 15.6, platelets 247, BMP unremarkable glucose 114, no anion gap, LFTs within normal, urine negative. She was noted to have a headache typical of her migraines that received IV fluids and Compazine in the ED. While in the ED, she was noted to have a generalized tonic-clonic event associated with loss of bladder but no loss of bowel or tongue biting that lasted approximately 1 minute. She received 1 mg of Ativan for this. Further testing includes CT head that was independently reviewed and showed no hemorrhage or hypodensity. Lab work today is notable for a UTI on UA and UDS positive for marijuana. Covid negative. She had previously had a seizure-like event back in August 2020 after which she lost her license. Event at that time was attributed to meth and marijuana usage. On examination, she reports that her boyfriend told her that she had a seizure out of sleep where her whole body shook for 2-3 minutes. A/w tongue biting but denies loss of bowel/bladder. Denies any seizure risk factors such as h/o febrile seizures or prior head injuries/brain malformation. Does endorse using medical marijuana and possibly still intermittent meth (unclear history as patient wanted to go back to sleep). Allergies Allergy/AdvReac Type Severity Reaction Status Date / Time procaine Allergy Intermediate RASH, Verified 02/16/21 10:24 NAUSEA Home Medications Medication Instructions Recorded Confirmed Type No Known Home Medications 02/16/21 02/16/21 History Patient History Medical History Illicit drug use Seizure Social History Smoking Status: Unknown if ever smoked Tobacco Type: Cigarettes Preferred Language: Peruvian Communication Ability Comment: patient unable to participate in admission assessment. Lethargic Current Living Situation Comment: patient unable to participate in admission assessment. Feels Safe at Home: Yes Review of Systems Review of Systems: 14 point review of systems completed and negative except as in HPI. Exam (Neuro) Physical Exam: General Exam: GEN: NAD, lying in bed. HEENT: No conjunctival injection, no rhinorrhea. CV: RRR, no peripheral edema PULM: Nonlabored respirations on room air. Neuro Exam: MS: Awake and Alert. Oriented to person, place, and month/year. Speech fluent and appropriate without dysarthria or paraphasic errors. Language intact including naming, comprehension, repetition. Cognition and memory grossly intact. Attention intact. No neglect. CN: Visual bach full. No extinction to double simultaneous stimuli. Unable to visualize fundi on fundoscopic exam. PERRLA OU. EOMI without nystagmus. Facial sensation intact to LT. Facial muscles full and symmetric. Hearing intact to conversation. Shoulder shrug normal. Tongue midline. MOTOR: Normal bulk and tone. No pronator drift. BUE strength 5/5 at deltoids, biceps, triceps, wrist flexors and extensors, and hand grasp bilaterally. BLE strength 5/5 at iliopsoas, hamstrings, quadriceps, tibialis anterior, and gastrocnemius bilaterally. REFLEXES: 2+ at biceps, triceps, brachioradialis, 2+ patella and Achilles bilaterally. Flexor plantar responses bilaterally. SENSORY: Intact to LT without extinction to double simultaneous stimuli. COORDINATION: No dysmetria or ataxia on [id number]-[id number]. GAIT: deferred given physical status (and patient refused to come out from under the sheets). Results & Data ([facility]) Vital Signs (Past 12 Hours) Vital Signs Temp Pulse Pulse Resp BP BP Pulse Ox 02/16/21 15:03 90 18 105/71 100 02/16/21 14:32 87 18 110/63 100 02/16/21 13:30 98 H 16 109/68 100 02/16/21 12:15 114 H 22 123/65 98 02/16/21 10:20 76 16 152/101 H 98 02/16/21 08:33 36.7 C 101 H 20 116/75 99 PG Care Time/CCT Total # of Minutes Spent Total Time Spent with Patient: Total time spent is greater than 50% in coordination of care (as documented) at patient's floor/unit and/or counseling patient: Coding Level of Care Code 59066 Inpt Consult Level 5 Diagnoses Seizure R56.9 Illicit drug use F19.90
[2021-02-16] MEDS ORDERED: ONDANSETRON INJ 2 MG/ML 2 ML VIAL IV PRN (15:51)
[2021-02-16] MEDS ORDERED: ACETAMINOPHEN 325 MG TAB PO PRN (15:51)
--- NOTE | 2021-02-16 16:05 | Electrocardiogram Report ---
Test Reason : Blood Pressure : / mmHG Vent. Rate : 094 BPM Atrial Rate : 094 BPM P-R Int : 128 ms QRS Dur : 082 ms QT Int : 352 ms P-R-T Axes : 056 030 045 degrees QTc Int : 440 ms Normal sinus rhythm with sinus arrhythmia Normal ECG When compared with ECG of 16-SEP-2020 05:27, No significant change was found Confirmed by Jc Cook ([id number]) on 02/16/2021 4:05:32 PM Referred By: REFERRED SELF Confirmed By:Mohsen Cook
[2021-02-16] MEDS ORDERED: ENOXAPARIN INJ 40 MG/0.4 ML SYR SQ SCH (18:00)
[2021-02-16] MEDS ORDERED: GADOBUTROL 65ML VIAL IV ONE (21:05)
--- NOTE | 2021-02-16 22:34 | Magnetic Resonance Report ---
MR brain seizure wo/w con HISTORY: 35 years-old Female siezure acute seizure like activity. COMPARISON: Head CT of same day TECHNIQUE: Multiplanar multisequence MRI of the brain was obtained both with and without the use of G adavist FINDINGS: Manager Rn localizer images demonstrate no gross extracranial abnormality. No restricted diffusion to sugg est acute or subacute infarct. No acute intracranial hemorrhage, midline shift, abnormal extra-axial collection, hydrocephalus or intra-axial mass. Motion degraded exam. Mild scattered T2/FLAIR hyperint ensities are noted within the subcortical white matter of the cerebral hemispheres. The bilateral mes ial temporal lobes are normal and symmetric. No evidence of mesial temporal sclerosis or acute seizur e focus. No cortical dysplasia or rubi matter heterotopia. Enhancing dural based extra-axial 1.0 x 0. 6 x 1.0 cm lesion adjacent to the right parietal lobe. Cerebral venous sinuses and major arterial flow voids are patent. Mastoid air cells and paranasal sin uses are generally clear. The skull, orbits and soft tissues are within normal limits. IMPRESSION: 1. No acute intracranial abnormality. 2. 1.0 cm enhancing extra-axial dural based lesion adjacent to the right parietal lobe is suggestive of a meningioma. 3. Mild scattered subcortical T2/FLAIR punctate hyperintensities are nonspecific. Primary differentia l considerations would include early chronic microvascular ischemic disease versus gliosis from chron ic migraines. A demyelinating process is considered less likely. ACT 112: Negative or not required by law. The above report was generated using voice recognition software. It may contain grammatical, syntax o r spelling errors. Electronically signed by: Blair Baptiste M.D. 02/16/2021 10:32 PM
--- NOTE | 2021-02-17 08:01 | Neurology Progress Note ---
Date of Service February 17, 2021 Assessment & Plan (1) Seizure: Dacia Goode is a 35 yo woman w/ PMH of migraines, obesity and polysubstance abuse (meth/marijuana) who p/t [facility] after having a witnessed seizure on 02/15. # Seizure: c/f provoked seizures in the setting of marijuana usage (unclear if natural vs synthetic such as K2 which has been related to seizures), less likely underlying seizure disorder triggered by UTI. - EEG to r/o seizure tendency - treatment of UTI per primary team - would hold off on starting AED at this time as unclear if seizures are provoked from drug abuse. If another witnessed seizure occurs (with eyes open), would give 1mg ativan and load with keppra 1500mg. Would then start keppra 1g bid. - no need for neurology follow up unless she has seizures outside the situation of drug abuse (provoked seizures) Thank you for this interesting consult. Plan of care discussed with primary team. Please call or text with questions. 30 minutes was spent [id number] with patient, with more than 50% spent on counseling/coordination of care. (2) Illicit drug use: Admission and Anticipated Discharge Date Admission Date: February 16, 2021 Subjective NAEs overnight. No further seizure like events. She reports that this happened due to her doing meth again (despite UDS being negative for meth). Reports that she will be stopping meth in the future since she does not want to have any more of these events. MRI brain obtained and showed a small posterior right parietal meningioma and minimal SVID vs non-specific T2 hyperintensities (likely from h/o migraines). EEG pending. Review of Systems Review of Systems: 10 point review of systems completed and negative except as in HPI. Results & Data ([facility]) Vital Signs (Past 12 Hours) Vital Signs Temp Pulse Pulse Resp BP Pulse Ox 02/17/21 07:00 63 02/17/21 03:00 37 C 73 18 90/64 L 97 02/16/21 23:01 36.9 C 79 18 93/57 L 97 Exam (Neuro) Physical Exam: General Exam: GEN: NAD, lying in bed. HEENT: No conjunctival injection, no rhinorrhea. CV: RRR, no peripheral edema PULM: Nonlabored respirations on room air. Neuro Exam: MS: Awake and Alert. Oriented to person, place, and month/year. Speech fluent and appropriate without dysarthria or paraphasic errors. Language intact including naming, comprehension, repetition. Cognition and memory grossly intact. Attention intact. No neglect. CN: Visual bach full. No extinction to double simultaneous stimuli. Unable to visualize fundi on fundoscopic exam. PERRLA OU. EOMI without nystagmus. Facial sensation intact to LT. Facial muscles full and symmetric. Hearing intact to conversation. Shoulder shrug normal. Tongue midline. MOTOR: Normal bulk and tone. No pronator drift. All extremities antigravity without drift COORDINATION: No dysmetria or ataxia on [id number]. GAIT: deferred given physical status PG Care Time/CCT Total # of Minutes Spent Total Time Spent with Patient: Total time spent is greater than 50% in coordination of care (as documented) at patient's floor/unit and/or counseling patient: Coding Level of Care Code 65888 Subseq Obs Care Lvl 3 Diagnoses Seizure R56.9 Illicit drug use F19.90
--- NOTE | 2021-02-17 13:51 | Discharge Summary ---
Date of Service February 17, 2021 Admission HPI Per Admitting Provider 35 YOF with past medical history of methamphetamine and marijuana use. Patient has one other reported seizure in August with positive meth and marijuana, she was discharged to home with neurology appointment and follow up; however patient did not go to her appointment. Patient comes to the emergency room because her boyfriend stated she had a seizure while sleeping last night, and reportedly these have been ongoing since August, but patient has not re-presented. Patient has video on her phone per the nurse of her seizures for review. In the emergency room, she had a witnessed tonic clonic seizure, with locked gaze and loss of bladder function; followed by post ictal confusion. She received 1mg Ativan. Telemetry was reviewed for correlation at that time and there are erratic waves for that time. Electrolytes are intact and does not appear to be infectious at this time, however urine toxicology and culture are pending. Dr. Reveles from Neurology was consulted via the EMD and will be in to evaluate the patient, does not recommend any anti-epileptics at this time, especially if related to illicit drug use. Upon my evaluation the patient is hemodynamically stable, continues to be posit-ictal with confusion and lethargy but follows commands. Patient will be admitted for observation. HCG negative. Principal Diagnosis Seizure Discharge Exam Constitutional WD/WN, vitals as above Eyes EOM intact bilaterally; no conjunctival abnormality ENMT external ear and nose normal, oropharynx normal Neck trachea midline, no thyromegaly normal visual inspection Respiratory normal respiratory effort, lungs clear to auscultation no respiratory distress Cardiovascular RRR, no murmur, no edema Gastrointestinal (Abdomen) Inspection/Auscultation: abdomen normal to inspection; abdomen not distended Musculoskeletal no cyanosis or clubbing, extremities motor strength 5/5 Skin no rashes, warm and dry Neurologic moves all extremities and awake Psychiatric Orientation: alert, oriented to person and cooperative Discharge Data Allergies Allergy/AdvReac Type Severity Reaction Status Date / Time procaine Allergy Intermediate RASH, Verified 02/16/21 10:24 NAUSEA Consultations 02/16/21 12:23 Consult Neurology Stat 02/16/21 12:36 ED Decision to Admit Stat Ordered Studies 02/16/21 10:44 CT head/brain wo con Stat 02/16/21 16:00 MR brain seizure wo/w con Routine Hospital Course (1) Seizure: Likely due to drug use vs. meningioma. - Neurology consulted - Appreciate recs on anti-epileptics and further imaging (MRI seizure protocol). - MRI brain on 02/16 showed a 1 cm extra-axial dural based lesion, likely a meningioma. - The morning of 02/17, the patient requested to leave as she reported her chil dren were at home with someone who had to leave. I asked her to stay for the EEG, but she was unwilling. She was fully capable of making this decision, and I did tell her she could have another seizure which could result in injury or even . She correlated her seizures to her drug use, saying "I do meth, I have a seizure. I do meth, I have a seizure." I told her I was not able to say this was the only cause. Nonetheless, she was unwilling to stay. She did report she was willing to see Dr. Reveles in the office which I encouraged her to do and provided Dr. Reveles's office information on her discharge paperwork. (2) Illicit drug use: Continue to educate patient on avoidance - Patient reported she would stop doing meth on her own. (3) Obesity: Weight loss education and healthy lifestyle choices- needs a PCP appreciate director of casework department assistance (4) Leukocytosis: WBC 12- likely reactive to stress - Urine contaminant- 0 WBC per HPF 5-10 epi cells. Total Time Total Time Spent Total Time Spent (In Minutes): 35 Discharge Plan Discharge Items Patient Disposition: Against Medical Advice Reason For Visit: SEIZURE Discharge Diagnosis: Seizure Activity: Resume your previous activity Non-emergency contact: Primary Care Provider Call non-emergency contact if: your symptoms worsen Follow-up/Referrals: Melanie Reveles MD [Physician] - (Please follow up with Dr. Reveles as soon as possible.) PCP,NO [Primary Care Provider] - Diet: Regular Addtl Attending Provider Instructions: Please don't do meth. Pending Studies at Discharge: No Stand-Alone Forms: My Modern Message, Smoking Cessation Medications and DC Order Prescriptions: No Action No Known Home Medications RF: 0 Discharge Orders: Left Against Medical Advice (Routine); Ordered 02/17/21 Ordered By: Kodi Boyle Admission Data Admit Date/Time: 02/16/21 14:13 Attending Provider: Kodi Boyle Admit Provider: Billy Alexander Primary Care Provider: PCP,NO Other Providers: Melanie Reveles ; Kodi Boyle Other Interventions: Discharge Summary Assessment (RN) Last Done: 02/17/21 09:37 Coding Level of Care Code 77580 OBS Care - Discharge Diagnoses Seizure R56.9 Illicit drug use F19.90 Obesity E66.9; Z68.38 Obesity type: unspecified obesity type Obesity classification: adult class 2 (BMI 35 - 39.9) Serious obesity comorbidity presence: without serious comorbidity Body mass index: BMI 38.0-38.9 Leukocytosis D72.829
[2021-02-19 10:11] LABS: Marijuana Quant, GCMS Urine >5000 ng/mL (<5)
== END 2021-02-17 09:45 | disposition left against medical advice (07) ==
LOC: ED 08:22 → 2W 08:22 → SUATTDRO 14:13 → 2W 15:03